=== PATIENT | female | born 1975 | race Caucasian/White ===

== ENCOUNTER → 2022-07-31 | Emergency (ER) | payer BC ==
[~2022-07-31] VITALS: Ht 165.1 cm; Wt 52.2 kg
== END | disposition home or self-care (01) ==
LOC: ER 11:33
DX: M25.562 Pain in left knee (principal); I48.91 Unspecified atrial fibrillation; D68.51 Activated protein C resistance; R94.31 Abnormal electrocardiogram [ECG] [EKG]
CPT/HCPCS: 93005; 93971; 99283